=== PATIENT | female | born 1960 | race Caucasian/White ===

== ENCOUNTER → 2022-05-11 | Outpatient (CLI) | payer BC ==
[~2022-05-11] MED LIST: LORA10CA PO; OMEG1CAP51 PO; SIMV20TA3 PO
== END ==
LOC: CARD 10:43
PROVIDERS: ATTEND Nurse Practitioner Family
DX: R00.2 Palpitations (principal)
CPT/HCPCS: 93246

== ENCOUNTER → 2022-07-03 | Outpatient (CLI) | payer BC ==
[~2022-07-03] VITALS: Ht 162 cm; Wt 81.0 kg
[~2022-07-03] MED LIST changes: +CATHETER FLUSH 10 ML SYR IVP PRN
[2022-07-03 08:12] VITALS: BP 145/52
--- NOTE | 2022-07-03 12:39 | Cardiology Stress Test Report ---
Stress Test Report Date of Procedure/Referring: Date of Procedure: Jul 03, 2022 PCP Elina Cheema Dnp Admitting Physician Admitting Physician: Attending Physician: Elina Cheema Dnp Indications: Palpitations Baseline Vital Signs Vital Signs Date Time Temp Pulse Resp B/P (MAP) Pulse Ox O2 Delivery O2 Flow Rate FiO2 07/03/22 08:12 76 16 145/52 (83) 98 Room Air Summary: Patient receive a resting and stress dose of Myoview, images were acquired and reviewed in the short axis view, horizontal long axis view and vertical long axis view. TID: 1.13 SSS: 1 SDS: 1 EF: 64 1. Test was supervised by Dr. Cheema 2. No significant ischemia or infarction noted on SPECT images 3. Normal left ventricular size, ejection fraction 64% Copy Copies To 1: RAYMON CHEEMA BASHAR J MD Jul 03, 2022 12:39
== END ==
LOC: CARD 07:00
PROVIDERS: ATTEND Nurse Practitioner Family
DX: R00.2 Palpitations (principal)
CPT/HCPCS: 78452; 93017; A9502